=== PATIENT | male | born 1975 | race Caucasian/White ===

== ENCOUNTER 2021-02-22 14:01 | Outpatient (CLI) | payer BC ==
[2021-02-22 19:35] LABS: SARS-CoV-2 IgG Ab Non-Reactive (NonReactive)
[2021-02-22 19:38] LABS: SARS-CoV-2 IgG Index 0.03 S/CO (< 1.40)
== END 2021-02-22 14:02 | disposition home or self-care (01) ==
LOC: SCSRAD 14:01
PROVIDERS: ATTEND Family Medicine
DX: Z01.84 Encounter for antibody response examination (principal); R05 Cough
CPT/HCPCS: 36415; 71046; 86769